=== PATIENT | male | born 1955 | race Caucasian/White ===

== ENCOUNTER 2022-06-13 09:36 | Day surgery (SDC) | payer MEDICARE ==
[~2022-06-13] VITALS: Ht 177.8 cm; Wt 104.3 kg
[~2022-06-13 09:36] MED LIST: ALPRAZOLAM0.5 MG PO; BUSPAR15 MG OR; FLEXERIL OR; FLONASE0.05 %; LEXAPRO20 MG OR; LORTAB 5 OR; METOPROLOL TART50 MG PO; METOPROLOL50 MG OR; NAPROSYN500 MG OR; OMEPRAZOLE20 MG OR; RESTORIL7.5 MG OR; SEROQUEL200 MG OR; TRAZODONE100 MG OR; ZOCOR20 MG OR
[2022-06-13 12:12] VITALS: BP 107/71
== END 2022-06-13 12:25 | disposition home or self-care (01) ==
LOC: ENDO 09:36 → ORM 11:20 → ENDO 12:25 → ORM 12:30 → ENDO 12:35 → ORM 12:40
PROVIDERS: ATTEND Internal Medicine Gastroenterology
PROC: 0DJD8ZZ Inspection of Lower Intestinal Tract, Via Natural or Artificial Opening Endoscopic (ICD-10-PCS; principal; 2022-06-13)
DX: Z12.11 Encounter for screening for malignant neoplasm of colon (principal); K64.8 Other hemorrhoids; K59.09 Other constipation; I10 Essential (primary) hypertension; E78.5 Hyperlipidemia, unspecified; F31.9 Bipolar disorder, unspecified; Z86.010 Personal history of colon polyps
CPT/HCPCS: G0105

== ENCOUNTER 2022-11-28 07:56 | Day surgery (SDC) | payer MEDICARE ==
[~2022-11-28] VITALS: Ht 177.8 cm; Wt 104.8 kg
[2022-11-28] MEDS ORDERED: OMEPRAZOLE DR40 MG (08:14)
[2022-11-28] MEDS ORDERED: SIMVASTATIN20 M1 (08:15)
[2022-11-28 09:36] VITALS: BP 123/74
== END 2022-11-28 09:52 | disposition home or self-care (01) ==
LOC: ENDO 07:56 → ORM 09:40 → ENDO 09:52 → ORM 10:20
PROVIDERS: ATTEND Internal Medicine Gastroenterology
PROC: 0DB98ZX Excision of Duodenum, Via Natural or Artificial Opening Endoscopic, Diagnostic (ICD-10-PCS; principal; 2022-11-28)
PROC: 0DB78ZX Excision of Stomach, Pylorus, Via Natural or Artificial Opening Endoscopic, Diagnostic (ICD-10-PCS; 2022-11-28)
PROC: 0DB48ZX Excision of Esophagogastric Junction, Via Natural or Artificial Opening Endoscopic, Diagnostic (ICD-10-PCS; 2022-11-28)
DX: K29.70 Gastritis, unspecified, without bleeding (principal); K22.70 Barrett's esophagus without dysplasia; K44.9 Diaphragmatic hernia without obstruction or gangrene; K31.9 Disease of stomach and duodenum, unspecified; I10 Essential (primary) hypertension; E78.5 Hyperlipidemia, unspecified; F41.9 Anxiety disorder, unspecified; Z79.899 Other long term (current) drug therapy